=== PATIENT | female | born 1985 | race Caucasian/White ===

== ENCOUNTER 2017-02-01 14:19 | Emergency (ER) | payer OTHER ==
[2017-02-01 14:21] VITALS: BP 137/100; PULSE 82; RESP 20; TEMP 98.1; O2SAT 99
[2017-02-01] MEDS ORDERED: ERYTOIN10 EACH EYE (14:42)
[2017-02-01] MEDS ORDERED: BENZ100 PO (14:42)
[2017-02-01] MEDS ORDERED: MOME17I EACH NARE (14:42)
[2017-02-01] MEDS ORDERED: MAGICPED SWISH-SWAL (14:42)
--- NOTE | 2017-02-01 14:43 | PD ---
HPI Chief Complaint: Cold / Flu Symptoms Time Seen by Provider: 14:39 Travel History International Travel<30 days: No Contact w/Intl Traveler<30days: No Traveled to known affect area: No History of Present Illness HPI 31-year-old female presents emergency Department with complaint of nasal congestion, cough, throat irritation 5 days. Just came down here on vacation and last night her eyes swelled up and she had redness and clear drainage from her eyes. Woke up this morning with her eyes crusted shut. Denies fever, vomiting, abdominal pain. Denies chest tightness, chest pain, shortness of breath, wheezing. Has been taking [id number]-[id number] medications for symptom management. Allergies to penicillin and sulfa. Her and daughter are sick with similar symptoms. No other medical complaints. No other modifying factors or associated signs and symptoms. PFSH Social History Tobacco Use: No Allergies-Medications (Allergen,Severity, Reaction): Coded Allergies: Penicillin (Verified Allergy, Unknown, 02/01/17) Sulfa (Verified Allergy, Unknown, 02/01/17) Reported Meds & Prescriptions Reported Meds & Active Scripts Active Nasonex Nasal [place] (Mometasone Furoate) 50 Mcg/Act Naspr 2 [place] EACH NARE DAILY PRN Magic Mouthwash Pediatric/Adult Liq (Lidocaine/Diphenhydr/Alum/Mg/Simeth) 60 Ml Susp 5 Ml SWISH-SWAL Q3HR PRN Each 5mL contains: Diphenydramine 4.5mg, Viscous Lidocaine 2% 10mg, Maalox Advanced Regular Strength 2.7ml Tessalon Perles (Benzonatate) 100 Mg Cap 100 Mg PO TID PRN Erythromycin Opth Oint 5 Mg/Gm Oint 1 Applic EACH EYE QID 5 Days Review of Systems Except as stated in HPI: all other systems reviewed are Neg Physical Exam Narrative GENERAL: Well-nourished, well-developed female patient, in no acute distress; afebrile, nontoxic-appearing SKIN: Warm and dry. No rash. HEAD: Atraumatic. Normocephalic. EYES: Pupils equal and round at 4 mm with brisk reaction. No scleral icterus. No injection or drainage. Bilateral sclerae erythemic; no lid edema; no drainage noted. ENT: Mucosa pink and moist. No erythema or exudates. No uvular edema. No uvular , palatal, or tonsillar deviation. Airway patent. EARS: Bilateral pinnae and external canals appear within normal limits. Bilateral tympanic membranes without erythema, dullness or perforation. NECK: Trachea midline. No lymphadenopathy. CARDIOVASCULAR: Regular rate and rhythm. No murmur appreciated. RESPIRATORY: No accessory muscle use. Clear to auscultation. Breath sounds equal bilaterally. No retractions or tachypnea. GASTROINTESTINAL: Abdomen soft, non-tender, nondistended. Hepatic and splenic margins not palpable. Bowel sounds are active 4 quadrants. MUSCULOSKELETAL: No obvious deformities. No clubbing. No cyanosis. No edema. NEUROLOGICAL: Awake and alert. Oriented 3. No obvious cranial nerve deficits. Motor grossly within normal limits. Normal speech. Moves all extremities. 5/5 strength to all extremities. PSYCHIATRIC: Appropriate mood and affect; insight and judgment normal. Data Data Last Documented VS Vital Signs Date Time Temp Pulse Resp B/P Pulse Ox O2 Delivery O2 Flow Rate FiO2 02/01/17 14:21 98.1 82 20 137/100 99 Room Air [facility] Medical Decision Making Medical Screen Exam Complete: Yes Emergency Medical Condition: Yes Medical Record Reviewed: Yes Differential Diagnosis Viral illness, allergic rhinitis, conjunctivitis, sinusitis Narrative Course 31-year-old female physical exam consistent with viral illness and bilateral conjunctivitis. Patient is afebrile and nontoxic-appearing. Denies fever, vomiting. I will treat the patient with antibiotic eyedrops for possible bacterial conjunctivitis. Erythromycin, Tessalon Perles, Magic mouthwash, Nasonex nasal spray prescribed for home. Patient verbalizes understanding and agreement with treatment plan. Patient is medically cleared and stable for discharge. Discussed reasons to return to the emergency department. Instructed patient to follow up with primary care provider. Patient agrees with treatment plan. The patients vital signs are stable and the patient is stable for outpatient follow-up and treatment. Patient discharged home, stable and in no acute distress. Diagnosis Primary Impression: Viral illness Additional Impression: Bilateral conjunctivitis Qualified Code: H10.9 - Conjunctivitis of both eyes, unspecified conjunctivitis type Referrals: Primary Care Physician Patient Instructions: Allergic Rhinitis (ED), Cold Symptoms (ED), Conjunctivitis (ED), General Instructions, Safe Use of Cough and Cold Medicines (ED) Additional Instructions: Ibuprofen or Tylenol as instructed and as needed for fever/pain Ioka-bem-zavbjzp antihistamines or decongestants as directed and as needed for symptom management Get plenty of sleep/rest Drink plenty of fluids to prevent dehydration; popsicles and Gatorade Use an air humidifier/turn off ceiling fans Follow-up with primary care provider Return immediately to the emergency department with worsening of symptoms Med/Other Pt SpecificInfo: Prescription(s) given Scripts Mometasone Nasal [place] (Nasonex Nasal [place])50 Mcg/Act Naspr2 [place] EACH NARE DAILY PRN (NASAL CONGESTION) #1 BOTTLE Ref 0 Prov:Leanna Francisco 02/01/17 Gvjnihdakcntdjo-Iucyovygi-Fvl-Alum-Simeth Liq (Magic Mouthwash Pediatric/Adult Liq)60 Ml Susp5 Ml SWISH-SWAL Q3HR PRN (SORE THROAT) #60 ML Ref 0 Each 5mL contains: Diphenydramine 4.5mg, Viscous Lidocaine 2% 10mg, Maalox Advanced Regular Strength 2.7ml Prov:Leanna Francisco 02/01/17 Benzonatate (Tessalon Perles)100 Mg Ucp064 Mg PO TID PRN (COUGH) #10 CAP Ref 0 Prov:Leanna Francisco 02/01/17 Erythromycin Opth Oint 5 Mg/Gm Oint1 Applic EACH EYE QID 5 Days Ref 0 Prov:Leanna Francisco 02/01/17 Disposition: 01 DISCHARGE HOME Condition: Stable Leanna Francisco Feb 01, 2017 14:43
[2017-02-01 14:53] VITALS: BP 120/86; TEMP 98
== END 2017-02-01 14:53 | disposition home or self-care (01) ==
LOC: NEPK 14:19
DX: B34.9 Viral infection, unspecified (principal); H10.9 Unspecified conjunctivitis; Z88.0 Allergy status to penicillin; Z88.2 Allergy status to sulfonamides
CPT/HCPCS: 99284